=== PATIENT | female | born 1945 | race Caucasian/White ===

== ENCOUNTER → 2017-05-25 | Day surgery (SDC) | payer OTHER ==
[~2017-05-25] MED LIST: LIDOCAINE 1% PF 2 ML VIAL. ID; LIDOCAINE 2% PF Vial for OR 5 ML VIAL.; MIDAZOLAM HCL/PF 2 MG/2 ML VIAL. IV; PROPOFOL 40 ML IV; fentaNYL PF VIAL 100 MCG/2 ML VIAL IV
[2017-05-25 09:50] LABS: POC GLUCOSE 192 mg/dL (70-99)
[2017-05-25] MEDS: IV RINGERS,LACTATED 1000ML 1,000 ML IV ×3 (09:50)
== END | disposition home or self-care (01) ==
LOC: SURG 09:16
DX: Z12.11 Encounter for screening for malignant neoplasm of colon (principal); E11.42 Type 2 diabetes mellitus with diabetic polyneuropathy; I10 Essential (primary) hypertension; E78.00 Pure hypercholesterolemia, unspecified; E03.9 Hypothyroidism, unspecified; F41.9 Anxiety disorder, unspecified; F32.9 Major depressive disorder, single episode, unspecified; E66.9 Obesity, unspecified; Z86.69 Personal history of other diseases of the nervous system and sense organs; Z79.899 Other long term (current) drug therapy; Z72.89 Other problems related to lifestyle; R19.5 Other fecal abnormalities
CPT/HCPCS: 45378; 82962; J2704

== ENCOUNTER → 2017-08-06 | Outpatient (CLI) | payer OTHER | END | disposition home or self-care (01) | LOC: KCIC MAMMO 14:00 | DX: Z12.31 Encounter for screening mammogram for malignant neoplasm of breast (principal); I10 Essential (primary) hypertension; E11.42 Type 2 diabetes mellitus with diabetic polyneuropathy; E78.00 Pure hypercholesterolemia, unspecified | CPT/HCPCS: 77063; 77067 ==

== ENCOUNTER → 2017-11-17 | Outpatient (CLI) | payer OTHER | END | disposition home or self-care (01) | LOC: KCIC DEXA 13:17 | DX: Z13.820 Encounter for screening for osteoporosis (principal); I10 Essential (primary) hypertension; E11.9 Type 2 diabetes mellitus without complications; E03.9 Hypothyroidism, unspecified; Z78.0 Asymptomatic menopausal state | CPT/HCPCS: 77080; 77081 ==

== ENCOUNTER → 2018-08-19 | Outpatient (CLI) | payer OTHER ==
[2017-05-25 10:36] VITALS: BP 164/74
[~2018-08-19] MED LIST changes: +ACET325T21 PO; +AMLO10TA8 PO; +AMOX1TAB61 PO; +ASPI-630 PO; +ATORVASTATIN CA80 MG PO; +CHOL2000 PO; +DOCU100C28 PO; +FISH1CAP PO; +GABA300C18 PO; +HYDR12.58 PO; +INSU100V SQ; +INSU100V13 SQ; +LEVO150T5 PO; -LIDOCAINE 1% PF 2 ML VIAL. ID; -LIDOCAINE 2% PF Vial for OR 5 ML VIAL.; +LOSA100T14 PO; +METH750T2 PO; -MIDAZOLAM HCL/PF 2 MG/2 ML VIAL. IV; +OXYC1TAB7 PO; +PARO20TA3 PO; +PIOG15TA42 PO; -PROPOFOL 40 ML IV; -fentaNYL PF VIAL 100 MCG/2 ML VIAL IV
--- NOTE | 2018-08-19 16:57 | KCIC ---
Bilateral digital screening mammograms with 3-D tomosynthesis: Reason for examination: Routine screening. Comparison is made to previous studies dated 08/06/2017 and 07/03/2015. Bilateral mammograms in CC and oblique projections were obtained with 2-D imaging and 3-D tomosynthesis imaging on a Siemens Inspiration unit and reviewed on the workstation. Interpretation was made with the benefit of CAD. The skin and nipples show no abnormalities. No abnormal axillary lymph nodes are seen. The breast parenchyma shows scattered fatty and fibroglandular density. (Breast density: Category B.) There continues to be some nodularity in the subareolar position of the right breast which may reflect ductal ectasia. There are no new dominant masses, suspicious calcifications or architectural distortion. Benign calcifications are present. Impression: No evidence of malignancy. Recommend routine screening. BI-RAD Category 2: Benign. "Our facility is accredited by the [employer] Mammography [employer]." This patient's information has been entered into a reminder system for the patient to be notified with the results of her examination and a target date for the next mammogram. Electronically signed by: Mary Barnes MD (08/19/2018 4:54 PM) [id number]
== END | disposition home or self-care (01) ==
LOC: KCIC MAMMO 13:34
PROVIDERS: ATTEND Internal Medicine
DX: Z12.31 Encounter for screening mammogram for malignant neoplasm of breast (principal); N64.89 Other specified disorders of breast
CPT/HCPCS: 77063; 77067

== ENCOUNTER → 2018-12-30 | Outpatient (CLI) | payer OTHER ==
[2017-05-25 10:36] VITALS: BP 164/74
--- NOTE | 2018-12-30 17:25 | KCIC ---
EXAM: Pelvis, single view. HISTORY: Fall. COMPARISON: None. FINDINGS: A frontal view of the pelvis is obtained. No displaced fracture is seen. There is mild marginal spurring involving the bilateral hips. There is instrumented fusion involving the visualized lower lumbar spine. There is lumbar scoliosis and multilevel degenerative change involving the lumbar spine. There are multiple pelvic phleboliths. IMPRESSION: 1. No acute osseous finding. 2. Mild bilateral hip osteoarthritis. 3. Degenerative and postoperative changes involving the lumbar spine, not formally assessed on this exam. Electronically signed by: Lorraine Rosario MD (12/30/2018 5:22 PM) [id number]
== END | disposition home or self-care (01) ==
LOC: KCIC 15:42
PROVIDERS: ATTEND Internal Medicine
DX: M16.0 Bilateral primary osteoarthritis of hip (principal); M76.9 Unspecified enthesopathy, lower limb, excluding foot; M47.816 Spondylosis without myelopathy or radiculopathy, lumbar region
CPT/HCPCS: 72170

== ENCOUNTER → 2019-10-18 | Outpatient (CLI) | payer MEDICARE ==
[2017-05-25 10:36] VITALS: BP 164/74
[~2019-10-18] MED LIST changes: -INSU100V SQ; +INSU100V6 SQ
--- NOTE | 2019-10-18 15:45 | KCIC ---
Bilateral digital screening mammograms with 3-D tomosynthesis: Reason for examination: Routine screening. Comparison is made to previous studies dated back to 04/26/2014. Bilateral mammograms in CC and oblique projections were obtained with 2-D imaging and 3-D tomosynthesis imaging on a Siemens Inspiration unit and reviewed on the workstation. Interpretation was made with the benefit of CAD. The skin and nipples show no abnormalities. No abnormal axillary lymph nodes are seen. The breast parenchyma shows scattered fatty and fibroglandular density. (Breast density: Category B.) There are no dominant masses, suspicious calcifications or architectural distortion. Benign calcifications are present. Impression: No evidence of malignancy. Recommend routine screening. BI-RAD Category 2: Benign. "Our facility is accredited by the [employer] Mammography [employer]." This patient's information has been entered into a reminder system for the patient to be notified with the results of her examination and a target date for the next mammogram. Electronically signed by: Mary Barnes MD (10/18/2019 3:42 PM) [email or web address]
== END | disposition home or self-care (01) ==
LOC: KCIC MAMMO 14:08
PROVIDERS: ATTEND Obstetrics & Gynecology
DX: Z12.31 Encounter for screening mammogram for malignant neoplasm of breast (principal)
CPT/HCPCS: 77063; 77067

== ENCOUNTER → 2020-12-20 | Outpatient (CLI) | payer MEDICARE, OTHER ==
[2017-05-25 10:36] VITALS: BP 164/74
[~2020-12-20] MED LIST changes: +AMLO-187 PO; -AMLO10TA8 PO; +METH-562 PO; -METH750T2 PO
--- NOTE | 2020-12-20 17:36 | KCIC ---
Bilateral digital screening mammograms with digital breast tomosynthesis Reason for examination: Routine screening. Comparison is made to previous study dated 10/18/2019, 08/19/2018, and 08/06/2017. Interpretation was made with the benefit of CAD. Findings: Breast density category B. There are scattered areas of fibroglandular density.. There are no suspicious masses, malignant appearing calcifications or architectural distortion. Impression: No evidence of malignancy. ASSESSMENT: BI-RADS 1. Negative. Recommendations: Routine screening mammograms. This patient's information has been entered into a reminder system for the patient to be notified wit h the results of her examination and a target date for the next mammogram. Electronically signed by: Antonia Guo MD (12/20/2020 5:34 PM) [email or web address]
== END ==
LOC: KCIC MAMMO 13:04
PROVIDERS: ATTEND Internal Medicine
DX: Z12.31 Encounter for screening mammogram for malignant neoplasm of breast (principal)
CPT/HCPCS: 77063; 77067